=== PATIENT | female | born 1940 | race Caucasian/White ===

== ENCOUNTER → 2022-03-10 | Outpatient (CLI) | payer MEDICARE, BC | LOC: HEART 5 10:50 | DX: I10 Essential (primary) hypertension (principal); R00.2 Palpitations; I49.3 Ventricular premature depolarization; R06.02 Shortness of breath; I08.1 Rheumatic disorders of both mitral and tricuspid valves | CPT/HCPCS: 93306 ==

== ENCOUNTER → 2022-05-28 | Outpatient (CLI) | payer MEDICARE, BC | LOC: HEART 5 08:24 | DX: I47.2 Ventricular tachycardia (principal) | CPT/HCPCS: 78452; A9502; J2785 ==